=== PATIENT | female | born 1945 | race Caucasian/White ===

== ENCOUNTER 2018-06-15 12:23 | Emergency (ER) | payer OTHER ==
--- OUTSIDE RECORDS SUMMARY | 2018-06-15 12:26 | XMS REPORT | Continuity of Care Document ---
:1945 Author Organization Interface Problems Problem Status Onset Classification Date Comments Source Date Reported SYNOVIAL PLICA Active 04/23/20 [facility] 16 Jacky MECHANICAL Active 09/14/19 [facility] COMPLICATION OF 15 Medical TOTAL KNEE [facility] AFTERCARE Active 08/31/19 [facility] FOLLOWING JOINT 15 Medical REPLACEMENT Center Breast cancer Resolved 05/05/18 Problem 05/12/2016 Ortho [facility] Spine,[facility] Arthritis Active Problem 05/12/2016 [facility] H/O Resolved Problem 05/12/2016 Has had [facility] vertigo<sup>1</s brain and Spine up> scans, Negative. Migraines Active Problem 05/12/2016 [facility] Reflux Active Problem 05/12/2016 [facility] Seasonal Resolved Problem 05/12/2016 Ortho allergies and Spine Tachycardia<sup> Resolved Problem 05/12/2016 stable w/ [facility] 2</sup> [facility] Final: 10/15/2014 [facility] Tachycardia<sup> Resolved Problem 10/15/2014 1stable w/ [facility] 1</sup> [facility] COM PROS JT Active [facility] AFTERCARE JOINT Active [facility] REPLACE [facility] Medications Medication Details Route Status Patient Ordering Order Source Instructions Provider Date meloxicam 15 mg, 2 tab, No Longer 05/09/ Ortho Route: PO, Drug Active 2016 and form: TAB, Spine Daily, Dosing Weight 87.727, kg, PRN Pain Score 1-5, Start date: 05/09/16 8:13:00 [employer], Duration: 30 day, Stop date: 06/08/16 8:12:00 CSTNotes: (Same as: Enriqueta) Ondansetron 0.8 4 mg, 1 tab, No Longer 05/09/ Ortho MG/ML Oral Route: PO, Drug Active 2016 and Solution [Zofran] form: TABDIS, Spine Q8H, Dosing Weight 87.727, kg, PRN Nausea, Start date: 05/09/16 8:13:00 [employer], Duration: 30 day, Stop date: 06/08/16 8:12:00 CSTNotes: (Same as: Zofran ODT) Acetaminophen 650 mg, 2 tab, No Longer Ortho Route: PO, Drug Active 2016 and form: TAB, Q4H, Spine Dosing Weight 87.727, kg, PRN Pain 1-3/Temp > 100.4 F, Start date: 05/09/16 8:13:00 [employer], Duration: 30 day, Stop date: 06/08/16 8:12:00 CSTNotes: Do not exceed 4 gm/day. (Same as: Tylenol) meloxicam 15 mg 15 mg=1 tab, PO, Active Ortho oral tablet Daily, # 30 tab, 2016 and 1 Refill(s), Spine Pharmacy: [facility]/pharmacy #[id number] Flumazenil 0.2 mg, 2 mL, No Longer Ortho Route: IVP, Drug Active 2016 and form: INJ, PRN, Spine Dosing Weight 87.727, kg, PRN Benzodiazepine Reversal, Initial dose, Start date: 05/09/16 7:21:00 [employer], Duration: 30 day, Stop date: 06/08/16 7:20:00 CSTNotes: (Same as: Romazicon) Naloxone 0.4 mg, 1 mL, No Longer Ortho Route: IVP, Drug Active 2016 and form: INJ, Spine Q2MIN, Dosing Weight 87.727, kg, PRN Narcotic Reversal, Start date: 05/09/16 7:21:00 [employer], Duration: 8 doses or times, Stop date: Limited # of timesNotes: Same as Narcan Oxycodone 5 mg, 1 tab, No Longer Ortho Route: PO, Drug Active 2016 and form: TAB, Q4H, Spine Dosing Weight 87.727, kg, PRN Pain Score 4-6, Start date: 05/09/16 7:21:00 [employer], Duration: 30 day, Stop date: 06/08/16 7:20:00 CSTNotes: (Same as: Roxicodone) Labetalol 10 mg, 2 mL, No Longer Ortho Route: IVP, Drug Active 2016 and form: INJ, Spine Q5Min, Dosing Weight 87.727, kg, PRN Elevated BP, Start date: 05/09/16 7:21:00 [employer], Duration: 5 doses or times, Stop date: Limited # of times Hydromorphone 0.5 mg, 0.25 mL, No Longer Ortho Route: IVP, Drug Active 2016 and form: INJ, Spine Q5Min, Dosing Weight 87.727, kg, PRN Pain Score 7-10, Start date: 05/09/16 7:21:00 [employer], Duration: 4 doses or times, Stop date: Limited # of timesNotes: Same as Dilaudid Ondansetron 4 mg, 2 mL, No Longer Ortho Route: IVP, Drug Active 2016 and form: INJ, ONCE, Spine Dosing Weight 87.727, kg, PRN Nausea & Vomiting, Start date: 05/09/16 7:21:00 CSTNotes: (Same as: Levy) MEDICATION WASTE Product Size: 4 mg Product Wasted: ___ mg 72 HR Scopolamine 1 patch, Route: Inactive Ortho 0.0139 MG/HR TOP, Drug Form: 2017 and Transdermal Patch ERFILM, Dosing Spine Weight 87.727, kg, ONCE, Start date: 05/09/16 6:59:00 [employer], Stop date: 05/09/16 6:59:00 [employer] Ancef 2 gm, 100 mL, Inactive Ortho Route: IVPB, 2016 and Drug form: INJ, Spine ONCE, Dosing Weight 87.727, kg, Start date: 05/09/16 6:59:00 [employer], Duration: 1 doses or times, Stop date: 05/09/16 6:59:00 [employer], Surgical Prophylaxis Only; For patients Notes: Same as Ancef Lactated Ringers 1,000 mL, Rate: No Longer Ortho 1,000 mL 40 ml/hr, Infuse Active 2016 and over: 25 hr, Spine Route: IV, Dosing Weight 87.727 kg, Total Volume: 1,000, Start date: 05/09/16 6:59:00 [employer], Duration: 30 day, Stop date: 06/08/16 6:58:00 [employer] polymyxin B 125,000 unit, Inactive Ortho sulfate + sodium Route: IRRIG, 2017 and chloride 0.9% 250 Drug form: Spine mL INJ (for IV PDR/INJ, ONCE, set) 250 mL Start date: 05/09/16 6:42:00 [employer], Stop date: 05/09/16 6:42:00 CSTNotes: (Same as: Polymyxin B Sulfate) vancomycin + 500 mg, Route: Inactive Ortho sodium chloride IRRIG, Drug 2017 and 0.9% 250 mL INJ form: PDR/INJ, Spine (for IV set) 250 ONCE, Start mL date: 05/09/16 6:42:00 [employer], Stop date: 05/09/16 6:42:00 CSTNotes: TIME CRITICAL MEDICATION (Same As: Vancocin) ropivacaine 100 mL, Route: Inactive Ortho InFILtration(loc 2017 and al), Drug Form: Spine INJ, ONCE, Start date: 05/09/16 6:41:00 [employer], Stop date: 05/09/16 6:41:00 CSTNotes: NOT FOR IV use Ropivacaine 5 mg/mL (49.25 mL) Epinephrine 1 mg/mL (0.5 mL) Clonidine 0.1 mg/mL (0.8 mL) Normal Saline 48.45 mL Naproxen sodium 220 mg=1 tab, No Longer Ortho 220 MG Oral PO, Q8H, PRN Active 2015 and Tablet [Aleve] Pain, # 30 tab, Spine 0 Refill(s) Cyclobenzaprine 5 mg=1 tab, PO, Active Ortho hydrochloride 5 Daily, # 30 tab, 2016 and MG Oral Tablet 0 Refill(s) Spine [Flexeril] remove patch 1 patch, Route: No Longer [facility], Drug form: Active [facility] Medical ERFILM, Q72H, Center Start date: 10/13/14 20:00:00, Duration: 30 day, Stop date: 11/09/14 20:00:00Notes: Remove old patch before application of new patch. Aspirin 81 MG 81 mg=1 tab, PO, Active [facility] Chewable Tablet BID, # 42 tab, 0 2014 Medical Refill(s) [place] Acetaminophen 325 2 tab, PO, Q4H, Active [place] MG / tramadol PRN Pain Score 2014 Medical hydrochloride 4-6, # 40 tab, 0 Center 37.5 MG Oral Refill(s) Tablet Nexium 40 mg, 1 cap, No Longer [place] Route: PO, Drug Active 2014 Medical form: ECCAP, [place] Daily, Dosing Weight 81.818, kg, Start date: 10/11/14 9:00:00, Duration: 30 day, Stop date: 11/09/14 9:00:00Notes: (Same as: NexIUM) "Do Not Crush" Non-Formulary POLYETHYLENE 17 gm, 1 pkt, No Longer [place] GLYCOL 3350 Route: PO, Drug Active 2014 Medical form: PWDR, [place] Daily, Dosing Weight 81.818, kg, Start date: 10/11/14 9:00:00, Duration: 30 day, Stop date: 11/09/14 9:00:00Notes: Dissolve in 8 oz of water or juice. (Same as: Miralax) Docusate 100 mg, 1 cap, No Longer [place] Route: PO, Drug Active 2014 Medical form: CAP, BID, Center Dosing Weight 81.818, kg, Start date: 10/11/14 9:00:00, Duration: 30 day, Stop date: 11/09/14 17:00:00Notes: (Same as: Colace) (Do Not Crush) Lidocaine 1 patch, Route: No Longer [place] Hydrochloride TOP, Daily, Drug Active 2014 Medical 0.05 MG/MG form: FILM, Center Transdermal Patch Start date: [Lidoderm] 10/11/14 9:00:00, Duration: 30 day, Stop date: 11/09/14 9:00:00, Remove after 12 hoursSpecial Instructions: Remove after 12 hoursNotes: Apply only once for up to 12 hours in a 24-hour period (12 hours on and 12 hours off). (Same as: Lidoderm) "Remove old patch before application of new patch" sennosides, INTERMEDIATE 8.6 mg, 1 tab, No Longer [place] Route: PO, Drug Active 2014 Medical Form: TAB, Center Dosing Weight 81.818, kg, Daily, Start date: 10/11/14 9:00:00, Duration: 30 day, Stop date: 11/09/14 9:00:00Notes: (Same as: Senokot) Acetaminophen 10 1,000 mg, 100 Inactive [place] MG/ML Injectable mL, Route: IV, 2014 Medical Solution Drug form: INJ, Center Q6H, Dosing Weight 81.818, kg, For > or=50 kg, Start date: 10/11/14 0:00:00, Duration: 1 doses or times, Stop date: 10/11/14 0:00:00Notes: Infuse over 15 minutes Do not exceed 4gm/day of acetaminophen MEDICATION WASTE Product Size: 1000 mg Product Wasted: ___ mg Tranexamic Acid 900 mg, 9 mL, Inactive [place] Route: IVPB, 2014 Medical Drug form: INJ, Center ONCE, Dosing Weight 81.818, kg, Start date: 10/10/14 23:44:00, Stop date: 10/10/14 23:44:00Notes: (Same As: Cyklokapron) Aspirin 325 mg, 1 tab, No Longer [place] Route: PO, Drug Active 2014 Medical form: ECTAB, Center Q12H, Dosing Weight 81.818, kg, For patients with risk of bleeding, Start date: 10/10/14 21:47:00, Duration: 30 day, Stop date: 11/09/14 21:00:00Notes: (Do Not Crush) Do not crush or chew. 24 HR Metoprolol 25 mg, 1 tab, No Longer [place] Tartrate 25 MG Route: PO, Drug Active 2014 Medical Extended Release form: ERTAB, [place] Tablet [Toprol] Bedtime, Start date: 10/10/14 21:00:00, Duration: 30 day, Stop date: 11/08/14 21:00:00Notes: (Same as: Toprol XL) Do Not Crush ceFAZolin (SCIP) 2 gm, 100 mL, No Longer [place] Route: IVPB, Active 2014 Medical Drug form: INJ, Center Q6H, Dosing Weight 81.818, kg, Start date: 10/10/14 21:00:00, Duration: 6 doses or times, Stop date: 10/12/14 3:00:00Notes: Same as Ancef 72 HR Scopolamine 1.5 mg, Route: No Longer [place] 0.0139 MG/HR TOP, Drug Form: Active 2014 Medical Transdermal Patch ERFILM, Dosing Center Weight 81.818, kg, POST OP, Start date: 10/10/14 19:30:00Notes: Change patch every 72 hours (Same as: Transderm-Scop) 72 HR Scopolamine 1 patch, Route: No Longer [place] 0.0139 MG/HR TOP, Drug Form: Active 2014 Medical Transdermal Patch ERFILM, Dosing Center Weight 81.818, kg, Q72H, PRN Nausea & Vomiting, Start date: 10/10/14 19:26:00, Duration: 30 day, Stop date: 11/09/14 19:25:00Notes: Change patch every 72 hours (Same as: Transderm-Scop) naloxone 0.4 mg, 1 mL, No Longer [facility] Route: IV, Drug Active 2014 Medical form: INJ, PRN, Center PRN Sedation, Start date: 10/10/14 18:07:00, Duration: 30 day, Stop date: 11/09/14 18:06:00Notes: Same as Narcan celecoxib 200 mg, 1 cap, No Longer [facility] Route: PO, Drug Active 2014 Medical form: CAP, Center [id number], Dosing Weight 81.818, kg, Start date: 10/10/14 18:00:00, Duration: 30 day, Stop date: 11/09/14 6:00:00Notes: NSAID. Please check indication. Not for seizure. (Same As: CeleBREX) Tylenol 500 mg, 1 tab, No Longer [place] Route: PO, Drug Active 2014 Medical form: TAB, Q6H, Center Dosing Weight 81.818, kg, Start date: 10/10/14 18:00:00, Duration: 30 day, Stop date: 11/09/14 12:00:00Notes: Max acetaminophen 4000 mg/day (4 gm/day). (Same as: Tylenol Extra Strength) Tramadol 50 mg, 1 tab, No Longer [facility] Route: PO, Drug Active 2014 Medical form: TAB, Q6H, Center Dosing Weight 81.818, kg, Start date: 10/10/14 18:00:00, Duration: 30 day, Stop date: 11/09/14 12:00:00Notes: Not to exceed 400mg/day. (Same As: Ultram) Diphenhydramine 25 mg, 1 cap, No Longer [facility] Route: PO, Drug Active 2014 Medical form: CAP, Center Bedtime, Dosing Weight 81.818, kg, PRN Insomnia, Start date: 10/10/14 17:44:00, Duration: 30 day, Stop date: 11/09/14 17:43:00Notes: (Same as: Benadryl) Hydroxyzine 25 mg, 1 cap, No Longer [facility] Route: PO, Drug Active 2014 Medical form: CAP, Q6H, Center Dosing Weight 81.818, kg, PRN Itching, Start date: 10/10/14 17:44:00, Duration: 30 day, Stop date: 11/09/14 17:43:00Notes: (Same as: Vistaril) Sodium Chloride 1,000 mL, Rate: Inactive [place] 0.154 MEQ/ML 17 microgram/hr, 2014 Medical Injectable Route: IV, Center Solution Dosing Weight 81.818 kg, Total Volume: 1,000 mL, PRN itching, Start date: 10/10/14 17:44:00, Duration: 30 day, Stop date: 11/09/14 17:43:00 Bisacodyl 10 mg, 1 supp, No Longer [facility] Route: [place], Drug Active 2014 Medical form: SUPP, Center Daily, Dosing Weight 81.818, kg, PRN Constipation, Start date: 10/10/14 17:44:00, Duration: 30 day, Stop date: 11/09/14 17:43:00Notes: (Same As: Dulcolax, Bisco-Lax) Hydromorphone 0.3 mg, 0.15 mL, No Longer [facility] Route: IVP, Drug Active 2014 Medical form: INJ, Q4H, Center Dosing Weight 81.818, kg, PRN Pain Score 7-10, Start date: 10/10/14 17:44:00, Duration: 30 day, Stop date: 11/09/14 17:43:00Notes: Same as Dilaudid Promethazine 25 mg, 1 tab, No Longer [facility] Route: PO, Drug Active 2014 Medical form: TAB, QID, Center Dosing Weight 81.818, kg, PRN Nausea & Vomiting, Start date: 10/10/14 17:44:00, Duration: 30 day, Stop date: 11/09/14 17:43:00Notes: (Same as: Phenergan) Ondansetron 4 mg, 2 mL, No Longer [facility] Route: IVP, Drug Active 2014 Medical form: INJ, Q8H, Center Dosing Weight 81.818, kg, PRN Nausea & Vomiting, Start date: 10/10/14 17:44:00, Duration: 30 day, Stop date: 11/09/14 17:43:00Notes: (Same as: Zofran) MEDICATION WASTE Product Size: 4 mg Product Wasted: ___ mg Oxycodone 5 mg, 1 tab, No Longer [facility] Hydrochloride 5 Route: PO, Drug Active 2014 Medical MG Oral Tablet form: TAB, Q4H, Center Dosing Weight 81.818, kg, PRN Pain Score 4-6, Start date: 10/10/14 17:44:00, Duration: 30 day, Stop date: 11/09/14 17:43:00Notes: (Same as: Roxicodone) zolpidem 5 mg, Route: PO, Inactive [facility] Drug form: TAB, 2014 Medical Bedtime, Dosing Center Weight 81.818, kg, PRN Insomnia, Start date: 10/10/14 17:44:00, Duration: 30 day, Stop date: 11/09/14 17:43:00 Famotidine 20 mg, 1 tab, No Longer [facility] Route: PO, Drug Active 2014 Medical form: TAB, BID, Center Dosing Weight 81.818, kg, PRN Indigestion, Start date: 10/10/14 17:44:00, Duration: 30 day, Stop date: 11/09/14 17:43:00Notes: (Same as: Pepcid) Milk of Magnesia 30 ml, Route: No Longer [facility] PO, Drug Form: Active 2015 Medical SUSP, Dosing Center Weight 81.818, kg, Daily, PRN Constipation, Start date: 10/10/14 17:44:00, Duration: 30 day, Stop date: 11/09/14 17:43:00Notes: (Same as: Milk of Magnesia, MOM) Maalox Advanced 30 mL, Route: No Longer [place] Regular Strength PO, Drug Form: Active 2014 Medical SUSP SUSP, Dosing Center Weight 81.818, kg, QID, PRN Indigestion, Start date: 10/10/14 17:44:00, Duration: 30 day, Stop date: 11/09/14 17:43:00Notes: (aluminum hydroxide-magnes ium hyd- simethicone [id number]/5ml 30 ml ud [place]) Temazepam 15 mg, 1 cap, No Longer [facility] Route: PO, Drug Active 2014 Medical form: CAP, Center Bedtime, Dosing Weight 81.818, kg, PRN Sleep, Start date: 10/10/14 17:44:00, Duration: 30 day, Stop date: 11/09/14 17:43:00Notes: (Same As: Restoril) Tylenol 650 mg, 2 tab, No Longer [facility] Route: PO, Drug Active 2014 Medical form: TAB, Q6H, Center Dosing Weight 81.818, kg, PRN For Temp > 100.4 F, Start date: 10/10/14 17:44:00, Duration: 30 day, Stop date: 11/09/14 17:43:00Notes: Do not exceed 4 gm/day. (Same as: Tylenol) Acetaminophen 325 2 tab, Route: No Longer [facility] MG / tramadol PO, Drug Form: Active 2014 Medical hydrochloride TAB, Dosing Center 37.5 MG Oral Weight 81.818, Tablet kg, Q4H, PRN Pain Score 4-6, Start date: 10/10/14 17:44:00, Duration: 30 day, Stop date: 11/09/14 17:43:00Notes: Non-Formulary Drug. Do not exceed 4gm/day of acetaminophen. (Same as: Ultracet) 1/2 NS 1,000 mL 1,000 mL, Rate: No Longer [facility] 85 ml/hr, Infuse Active 2014 Medical over: 11.8 hr, Center Route: IV, Dosing Weight 81.818 kg, Total Volume: 1,000, Start date: 10/10/14 17:44:00, Duration: 30 day, Stop date: 11/09/14 17:43:00 Calcium Carbonate 1 tab, Route: No Longer [facility] 1500 MG / PO, Drug Form: Active 2014 Medical Cholecalciferol TAB, Dosing Center 400 UNT Oral Weight 81.818, Tablet kg, BID, Start date: 10/10/14 17:00:00, Duration: 30 day, Stop date: 11/09/14 9:00:00Notes: (Same As: Nicholas-D, OsCal-D, Oyster Calcium) Docusate 100 mg, 1 cap, No Longer [facility] Route: PO, Drug Active 2014 Medical form: CAP, BID, Center Dosing Weight 81.818, kg, Start date: 10/10/14 17:00:00, Duration: 30 day, Stop date: 11/09/14 9:00:00Notes: (Same as: Colace) (Do Not Crush) gabapentin 300 MG 300 mg, 1 cap, No Longer [facility] Oral Capsule Route: PO, Drug Active 2014 Medical form: CAP, Q8H, Center Dosing Weight 81.818, kg, Start date: 10/10/14 16:00:00, Duration: 30 day, Stop date: 11/09/14 8:00:00Notes: (Same as: Neurontin) Hydralazine 10 mg, 0.5 mL, No Longer [facility] Route: IVP, Drug Active 2014 Medical form: INJ, Q4H, Center Dosing Weight 81.818, kg, PRN Hypertension, Start date: 10/10/14 14:16:00, Duration: 30 day, Stop date: 11/09/14 14:15:00, SBP>170, DBP>100Notes: (Same as: Apresoline) Push over 5 minutes Hydroxyzine 25 mg, 1 cap, No Longer [place] Route: PO, Drug Active 2014 Medical form: CAP, QID, Center Dosing Weight 81.818, kg, PRN Itching, Start date: 10/10/14 13:54:00, Duration: 30 day, Stop date: 11/09/14 13:53:00Notes: (Same as: Vistaril) Ondansetron 4 mg, 2 mL, No Longer [place] Route: IVP, Drug Active 2014 Medical form: INJ, Q8H, Center Dosing Weight 81.818, kg, PRN Nausea & Vomiting, Start date: 10/10/14 13:53:00, Duration: 30 day, Stop date: 11/09/14 13:52:00Notes: (Same as: Zofran) MEDICATION WASTE Product Size: 4 mg Product Wasted: ___ mg Morphine 2 mg, 0.2 mL, No Longer [place] Route: IVP, Drug Active 2014 Medical form: INJ, Q3H, Center Dosing Weight 81.818, kg, PRN Pain Score 7-10, Start date: 10/10/14 13:53:00, Duration: 30 day, Stop date: 11/09/14 13:52:00Notes: (Same as:MORPhine Sulfate) REACTION TO MORPHINE IS NAUSEA/VOMITING (SPOKE WITH JAZMIN NAVA PRE-OP) Acetaminophen 325 1 tab, Route: No Longer [place] MG / Hydrocodone PO, Drug Form: Active 2014 Medical Bitartrate 10 MG TAB, Dosing Center Oral Tablet Weight 81.818, kg, Q4H, PRN Pain Score 4-6, Start date: 10/10/14 13:53:00, Duration: 30 day, Stop date: 11/09/14 13:52:00Notes: Do not exceed 4gm/day of acetaminophen. (Same as: [place] 325/10) Acetaminophen 325 1 tab, Route: No Longer [place] MG / Hydrocodone PO, Drug Form: Active 2014 Medical Bitartrate 5 MG TAB, Dosing Center Oral Tablet Weight 81.818, kg, Q4H, PRN Pain Score 1-3, Start date: 10/10/14 13:53:00, Duration: 30 day, Stop date: 11/09/14 13:52:00Notes: (Same as: [place] 325/5) Do not exceed 4gm/day of acetaminophen. Acetaminophen 650 mg, 2 tab, No Longer [facility] Route: PO, Drug Active 2014 Medical form: TAB, Q4H, Center Dosing Weight 81.818, kg, PRN Pain 1-3/Temp > 100.4 F, Start date: 10/10/14 13:53:00, Duration: 30 day, Stop date: 11/09/14 13:52:00, feverNotes: Do not exceed 4 gm/day. (Same as: Tylenol) Fentanyl 25 microgram, Inactive [facility] 0.5 mL, Route: 2014 Medical IVP, Drug form: Center INJ, Q5Min, Dosing Weight 81.818, kg, PRN Pain Score 4-6, Start date: 10/10/14 13:17:00, Duration: 4 doses or times, Stop date: 10/10/14 19:00:00Notes: (Same as: Sublimaze) Preservative free. Hydromorphone 0.5 mg, 0.25 mL, Inactive [facility] Route: IVP, Drug 2014 Medical form: INJ, Center Q5Min, Dosing Weight 81.818, kg, PRN Pain Score 7-10, Start date: 10/10/14 13:17:00, Duration: 4 doses or times, Stop date: 10/10/14 19:00:00Notes: Same as Dilaudid Flumazenil 0.2 mg, 2 mL, Inactive [facility] Route: IVP, Drug 2014 Medical form: INJ, PRN, Center Dosing Weight 81.818, kg, PRN Benzodiazepine Reversal, Initial dose, Start date: 10/10/14 13:17:00, Stop date: 10/10/14 19:00:00Notes: (Same as: Romazicon) Naloxone 0.04 mg, 0.1 mL, No Longer [facility] Route: IVP, Drug Active 2014 Medical form: INJ, Center Q2MIN, Dosing Weight 81.818, kg, PRN Narcotic Reversal, Start date: 10/10/14 13:17:00, Duration: 8 doses or times, Stop date: Limited # of timesNotes: Same as Narcan Promethazine 6.25 mg, 0.25 Inactive [facility] mL, Route: IVPB, 2014 Medical Drug form: INJ, Center ONCE, Dosing Weight 81.818, kg, PRN Nausea & Vomiting, Start date: 10/10/14 13:17:00Notes: Do not give IV push. (Same as: Phenergan) Ondansetron 4 mg, 2 mL, No Longer [facility] Route: IVP, Drug Active 2014 Medical form: INJ, ONCE, Center Dosing Weight 81.818, kg, PRN Nausea & Vomiting, Start date: 10/10/14 13:17:00Notes: (Same as: Zofran) MEDICATION WASTE Product Size: 4 mg Product Wasted: ___ mg Hydralazine 10 mg, 0.5 mL, Inactive [facility] Route: IVP, Drug 2014 Medical form: INJ, Center Q20Min, Dosing Weight 81.818, kg, PRN Elevated BP, Start date: 10/10/14 13:17:00, Duration: 2 doses or times, Stop date: 10/10/14 19:00:00Notes: (Same as: Apresoline) Push over 5 minutes Labetalol 10 mg, 2 mL, Inactive [facility] Route: IVP, Drug 2014 Medical form: INJ, Center Q5Min, Dosing Weight 81.818, kg, PRN Elevated BP, Start date: 10/10/14 13:17:00, Duration: 5 doses or times, Stop date: 10/10/14 19:00:00 Dexamethasone 4 mg, Route: Inactive [facility] IVP, ONCE, 2014 Medical Dosing Weight Center 81.818, kg, Start date: 10/10/14 12:19:00, Stop date: 10/10/14 12:19:00 Zofran 4 mg, Route: Inactive [facility] IVP, ONCE, 2014 Medical Dosing Weight Center 81.818, kg, Start date: 10/10/14 12:19:00, Stop date: 10/10/14 12:19:00 Cefazolin 2 gm, 100 mL, Inactive [facility] Route: IVPB, 2014 Medical Drug form: INJ, Center ONCE, Dosing Weight 81.818, kg, Start date: 10/10/14 12:18:00, Duration: 1 doses or times, Stop date: 10/10/14 12:18:00Notes: Same as Ancef Celebrex 400 mg, Route: Inactive [facility] PO, ONCE, Dosing 2014 Medical Weight 81.818, Center kg, Start date: 10/10/14 12:18:00, Stop date: 10/10/14 12:18:00 ropivacaine 100 mL, Route: Inactive [facility] InFILtration(loc 2015 Medical al), Drug Form: Center INJ, ONCE, Start date: 10/10/14 9:00:00, Stop date: 10/10/14 9:00:00Notes: NOT FOR IV use Ropivacaine 5 mg/mL (49.25 mL) Epinephrine 1 mg/mL (0.5 mL) Clonidine 0.1 mg/mL (0.8 mL) Ketorolac 30 mg/mL (1 mL) Normal Saline 48.45 mL biotin PO, Daily, 0 Active 09/19[facility] Refill(s) [address] [place] [address] Vitamin B Complex 1 tab, PO, Active [facility] oral capsule Daily, # 30 cap, 2015 Medical 0 Refill(s) [place] Calcium Carbonate 1 tab, PO, BID, Active [facility] 1500 MG / # 60 tab, [address] [place] [address] Cholecalciferol Refill(s) [place] 400 UNT Oral Tablet 24 HR Metoprolol 25 mg=1 tab, PO, Active [facility] Tartrate 25 MG Bedtime, # 30 2015 Medical Extended Release tab, 0 Refill(s) [place] Tablet [Toprol] Furosemide 20 MG 20 mg=1 tab, PO, Active [facility] Oral Tablet PRN, # 30 tab, 0 2015 Medical [Lasix] Refill(s) [place] Esomeprazole 40 40 mg=1 cap, PO, Active [facility] MG Enteric Coated Daily, # 30 cap, 2015 Medical Capsule [Nexium] 0 Refill(s) [place] Allergies, Adverse Reactions, Alerts Substance Category Reaction Severity Reaction Status Date Comments Source type Reported codeine Assertion n/v/sweati SV^Severe Drug Active [facility] ng [facility] Demerol HCl Assertion n/v/sweati SV^Severe Drug Active [facility] ng [facility] HYDROcodone Assertion Drug Active nausea, [facility] <sup>1</sup allergy vomiting. [facility] morphine Assertion n/v/sweati SV^Severe Drug Active [facility] ng allergy [facility] Immunizations Immunization Date Given Site Status Last Updated Comments Source Results Order Name Results Value Reference Date Interpretation Comments Source Range CHEM PANEL eGFR 61 05/01 Result Comment: The eGFR is calculated using the CKD-EPI formula. In most young, healthy individuals the eGFR will be >90 mL/ min/1.73m2. The eGFR declines with age. An eGFR of 60-89 may be normal in Ortho mL/min/1. some populations, particularly the elderly, for whom the CKD-EPI formula has not been extensively validated. Use of the eGFR is not recommended in the following populations: and 3m2 Spine Individuals with unstable creatinine concentrations, including patients and those with serious co-morbid conditions. Patients with extremes in muscle mass or diet. The data above are obtained from the National Kidney Disease Education Program (NKDEP) which additionally recommends that when the eGFR is used in patients with extremes of body mass index for purposes of drug dosing, the eGFR should be multiplied by the estimated BMI. CHEM PANEL Total Protein 6.4 g/dL 6.4 - 8.4 05/01 [facility] CHEM PANEL Albumin Lvl 3.6 g/dL 3.5 - 5.0 05/01 [facility] CHEM PANEL ASPARTATE 20 unit/L 0 - 37 05/01 Ortho TRANSAMINASE and Spine CHEM PANEL ALANINE 35 unit/L 0 - 65 05/01 Ortho AMINOTRANSFER /2015 and ASE Spine CHEM PANEL Bili Total 0.5 mg/dL 0.2 - 1.3 05/01 [facility] CHEM PANEL Alk Phos 98 unit/L 39 - 136 05/01 [facility] CHEM PANEL CO2 30 meq/L 24 - 32 05/01 [facility] CHEM PANEL Calcium Lvl 8.7 mg/dL 8.5 - 10.5 05/01 [facility] CHEM PANEL Chloride Lvl 104 meq/L 95 - 109 05/01 and Spine CHEM PANEL Creatinine 0.96 mg/dL 0.50 - 05/01 [facility]o Lvl 1.40 /2015 and Spine CHEM PANEL Sodium Lvl 141 meq/L 135 - 145 05/01 and Spine CHEM PANEL Potassium Lvl 4.6 meq/L 3.5 - 5.1 05/01 and Spine CHEM PANEL Glucose Lvl 93 mg/dL 70 - 99 05/01 and Spine CHEM PANEL BUN 25 mg/dL 7 - 22 05/01 and Spine CHEM PANEL B/C Ratio 26 6 - 25 05/01 and Spine CHEM PANEL AGAP 11.6 meq/L 10.0 - 05/01 Ortho 20.0 and Spine CHEM PANEL A/G Ratio 1.3 0.7 - 1.6 05/01 and Spine CHEM PANEL Globulin 2.8 g/dL 2.7 - 4.2 05/01 and Spine HEMATOLOGY Eosinophils 4.0 % 0.0 - 4.0 05/01 [facility] HEMATOLOGY Monocytes 11.2 % 2.0 - 12.0 05/01 [facility] HEMATOLOGY Lymphocytes # 1.4 K/CMM 1.0 - 5.5 05/01 [facility] HEMATOLOGY Basophils 0.7 % 0.0 - 1.0 05/01 [facility] HEMATOLOGY Segs-Bands # 4.3 K/CMM 1.5 - 8.1 05/01 [facility] HEMATOLOGY Eosinophils # 0.3 K/CMM 0.0 - 0.5 05/01 [facility] HEMATOLOGY Monocytes # 0.8 K/CMM 0.0 - 0.8 05/01 [facility] HEMATOLOGY Lymphocytes 20.3 % 20.0 - 05/01 Ortho 40.0 /2016 and Spine HEMATOLOGY Segs 63.8 % 45.0 - 05/01 Ortho 75.0 /2016 and Spine HEMATOLOGY MCH 25.4 pg 27.0 - 05/01 Ortho 31.0 /2016 and Spine HEMATOLOGY MCV 79.1 fL 80.0 - 05/01 Ortho 98.0 /2016 and Spine HEMATOLOGY Hct 36.6 % 36.0 - 05/01 Ortho 48.0 /2016 and Spine HEMATOLOGY Platelet 201 K/CMM 133 - 450 05/01 [facility] HEMATOLOGY MPV 9.7 fL 7.4 - 10.4 05/01 [facility] HEMATOLOGY Hgb 11.8 g/dL 12.0 - 05/01 Ortho 16.0 /2016 and Spine HEMATOLOGY RBC 4.63 M/CMM 4.20 - 05/01 Ortho 5.40 /2016 and Spine HEMATOLOGY MCHC 32.1 g/dL 32.0 - 05/01 Ortho 36.0 /2016 and Spine HEMATOLOGY WBC 6.7 K/CMM 3.7 - 10.4 05/01 [facility] HEMATOLOGY RDW 16.9 % 11.5 - 05/01 Ortho 14.5 /2015 and Spine URINE AND UA Sq Epi See Note 1 Few 05/01 Result Ortho STOOL Comment: UA and (05/01/16 10:40 AM) Microscopic - Spine Not indicated. URINE AND UA Nitrite Negative Negative 05/01 Ortho STOOL and (05/01/16 10:40 AM) Spine URINE AND UA 1.0 EU/dL 0.1 - 1.0 05/01 Orth[facility] STOOL Urobilinogen and Spine URINE AND UA Leuk Est Negative Negative 05/01 Ortho STOOL and (05/01/16 10:40 AM) Spine URINE AND UA Turbidity Clear Clear 05/01 Ortho STOOL and (05/01/16 10:40 AM) Spine URINE AND UA pH 6.0 5.0 - 8.0 05/01 Ortho STOOL and Spine URINE AND UA Color Yellow Yellow 05/01 Ortho STOOL and *NA* Spine (05/01/16 10:40 AM) URINE AND UA Spec Grav 1.020 <=1.030 05/01 Ortho STOOL and Spine URINE AND UA Protein Negative Negative 05/01 Ortho STOOL mg/dL mg/dL /2015 and Spine URINE AND UA Ketones Negative Negative 05/01 Ortho STOOL mg/dL mg/dL /2015 and Spine URINE AND UA Glucose Negative Negative 05/01 Ortho STOOL mg/dL mg/dL and Spine URINE AND UA Blood Negative Negative 05/01 Ortho STOOL and (05/01/16 10:40 AM) Spine URINE AND UA Bili Negative Negative 05/01 Ortho STOOL /2015 and *NA* Spine (05/01/16 10:40 AM) HEMATOLOGY Hct 33.5 % 36.0 - 10/12 [facility] 48.0 [facility] HEMATOLOGY Hgb 10.8 g/dL 12.0 - 10/12 [facility] 16. [facility] CHEM PANEL eGFR 76 10/11 1Result Comment: The eGFR is calculated using the CKD-EPI formula. In most young, healthy individuals the eGFR will be >90 mL/ min/1.73m2. The eGFR declines with age. An eGFR of 60-89 may be normal in [facility] mL/min/1.7 some populations, particularly the elderly, for whom the CKD-EPI formula has not been extensively validated. Use of the eGFR is not recommended in the following populations: [address] Individuals with unstable creatinine concentrations, including patients and those with serious co-morbid conditions. Patients with extremes in muscle mass or diet. The data above are obtained from the National Kidney Disease Education Program (NKDEP) which additionally recommends that when the eGFR is used in patients with extremes of body mass index for purposes of drug dosing, the eGFR should be multiplied by the estimated BMI. CHEM PANEL AGAP 12.9 meq/L 10.0 - 10/11 [facility] 20. [facility] CHEM PANEL Calcium Lvl 8.7 mg/dL 8.5 - 10.5 10/11 [facility] CHEM PANEL CO2 25 meq/L 24 - 32 10/11 [facility] CHEM PANEL Creatinine 0.8 mg/dL 0.5 - 1.4 10/11 [facility] CHEM PANEL Chloride Lvl 101 meq/L 95 - 109 10/11 [facility] CHEM PANEL BUN 18 mg/dL 7 - 22 10/11 [facility] CHEM PANEL Glucose Lvl 166 mg/dL 70 - 99 10/11 3Interpretive Data: Adult reference range values reflect the clinical guidelines of the [place] [employer]. [facility] CHEM PANEL Potassium Lvl 4.9 meq/L 3.5 - 5.1 10/11 [facility] CHEM PANEL Sodium Lvl 134 meq/L 135 - 145 10/11 [facility] HEMATOLOGY Hgb 11.0 g/dL 12.0 - 10/11 [facility] 16.0 [facility] HEMATOLOGY Hct 33.8 % 36.0 - 10/11 [facility] 48.0 /2015 [facility] Knee 1-2 Knee 1-2 10/10 - [facility] Views - Medical unilateral unilateral DX EXAM: LEFT KNEE 2 [facility] DX Read by: Gino Kaur MD Dictated Date/time: 10/11/14 08:07 INDICATION: Trauma Electronically Signed by: Gino Kaur MD 10/11/14 08:07 FINAL REPORT COMPARISON: None. TECHNIQUE: AP and lateral views of the left knee were obtained. FINDINGS: The patient is status post left total knee arthroplasty. Cemented longstem femoral and tibial components are present, appropriately positioned. No fractures, destructive osseous lesions or ort hopedic complications are seen. Surgical drain projects over the suprapatellar recess. IMPRESSION: Status post left total knee arthroplasty. CHEM PANEL eGFR 76 09/20 2Result Comment: The eGFR is calculated using the CKD-EPI formula. In most young, healthy individuals the eGFR will be >90 mL/ min/1.73m2. The eGFR declines with age. An eGFR of 60-89 may be normal in [facility] mL/min/1.7 some populations, particularly the elderly, for whom the CKD-EPI formula has not been extensively validated. Use of the eGFR is not recommended in the following populations: [address] Individuals with unstable creatinine concentrations, including patients and those with serious co-morbid conditions. Patients with extremes in muscle mass or diet. The data above are obtained from the National Kidney Disease Education Program (NKDEP) which additionally recommends that when the eGFR is used in patients with extremes of body mass index for purposes of drug dosing, the eGFR should be multiplied by the estimated BMI. CHEM PANEL Potassium Lvl 3.8 meq/L 3.5 - 5.1 09/20 [facility] CHEM PANEL Globulin 2.6 g/dL 2.0 - 4.0 09/20 [facility]2014 [facility] CHEM PANEL A/G Ratio 1.7 0.7 - 1.6 09/20 [facility] CHEM PANEL Albumin Lvl 4.4 g/dL 3.5 - 5.0 09/20 [facility] CHEM PANEL Alk Phos 81 unit/L 39 - 136 09/20 [facility] CHEM PANEL ALANINE 21 unit/L 0 - 65 09/20 AMINOTRANSFER [facility] CHEM PANEL Bili Total 0.5 mg/dL 0.2 - 1.3 09/20 [facility] CHEM PANEL ASPARTATE 20 unit/L 0 - 37 09/20 [facility] TRANSAMINASE [facility] CHEM PANEL Chloride Lvl 101 meq/L 95 - 109 09/20 [facility] CHEM PANEL Total Protein 7.0 g/dL 6.4 - 8.4 09/20 [facility] CHEM PANEL AGAP 13.8 meq/L 10.0 - 09/20 .0 [facility] CHEM PANEL CO2 28 meq/L 24 - 32 09/20 [facility] CHEM PANEL B/C Ratio 29 6 - 25 09/20 [facility] CHEM PANEL Calcium Lvl 9.7 mg/dL 8.5 - 10.5 09/20 [facility] CHEM PANEL Sodium Lvl 139 meq/L 135 - 145 09/20 [facility] CHEM PANEL BUN 23 mg/dL 7 - 22 09/20 [facility] CHEM PANEL Creatinine 0.8 mg/dL 0.5 - 1.4 09/20 [facility] l [facility] CHEM PANEL Glucose Lvl 92 mg/dL 70 - 99 09/20 4Interpretive Data: Adult reference range values reflect the clinical guidelines of the [place] [employer]. [facility] HEMATOLOGY Lymphocytes 20.2 % 20.0 - 09/20 40.0 [facility] HEMATOLOGY Segs 66.3 % 45.0 - 09/20 75.0 [facility] HEMATOLOGY Eosinophils 1.6 % 0.0 - 4.0 09/20 [facility] HEMATOLOGY Segs-Bands # 4.8 K/CMM 1.5 - 8.1 09/20 [facility] HEMATOLOGY Monocytes 11.5 % 2.0 - 12.0 09/20 [facility] HEMATOLOGY Basophils 0.4 % 0.0 - 1.0 09/20 [facility] HEMATOLOGY Lymphocytes # 1.5 K/CMM 1.0 - 5.5 09/20 [facility] HEMATOLOGY Monocytes # 0.8 K/CMM 0.0 - 0.8 09/20 [facility] HEMATOLOGY Basophils # 0.0 K/CMM 0.0 - 0.2 09/20 [facility] HEMATOLOGY Eosinophils # 0.1 K/CMM 0.0 - 0.5 09/20 [facility] HEMATOLOGY aPTT 25.4 s 23.0 - 09/20 28.2 /2014 [facility] HEMATOLOGY PROTIME 9.6 s 9.0 - 10.6 09/20 [facility] HEMATOLOGY INR 0.98 09/20 10Interpretive Data: RECOMMENDED RANGES FOR PROTIME INR: 2.0-3.0 for most medical and surgical thromboembolic states. Medical 2.5-3.5 for artificial heart valves and recurrent embolism. Center INR SHOULD BE USED ONLY FOR PATIENTS ON STABLE ANTICOAGULANT THERAPY. HEMATOLOGY MPV 11.6 fL 7.4 - 10.4 09/20 [facility] HEMATOLOGY RBC X 10x6 5.00 M/CMM 4.20 - 09/20 [facility] 5.40 /2014 [facility] HEMATOLOGY WBC X 10x3 7.3 K/CMM 3.7 - 10.4 09/20 [facility] HEMATOLOGY MCH 27.2 pg 27.0 - 09/20 31.0 [facility] HEMATOLOGY MCV 82.8 fL 80.0 - 09/20 98.0 [facility] HEMATOLOGY RDW 15.9 % 11.5 - 09/20 14.5 /2014 [facility] HEMATOLOGY MCHC 32.9 g/dL 32.0 - 09/20 36.0 [facility] HEMATOLOGY Platelet 218 K/CMM 133 - 450 09/20 [facility] HEMATOLOGY Hgb 13.6 g/dL 12.0 - 09/20 16.0 [facility] HEMATOLOGY Hct 41.4 % 36.0 - 09/20 [facility] 48.0 [facility] URINE AND Micro? Not Indicated 09/20 [facility] (09/20/14 11:25 AM) Center URINE AND UA Leuk Est Negative Negative 09/20 [facility] (09/20/14 11:25 AM) Center URINE AND UA Ketones Negative Negative 09/20 [facility] (09/20/14 11:25 AM) Center URINE AND UA Bili Negative Negative 09/20 [facility] STOOL [facility] (09/20/14 11:25 AM) Center URINE AND UA Blood Negative Negative 09/20 [facility] STOOL [facility] (09/20/14 11:25 AM) Center URINE AND UA Nitrite Negative Negative 09/20 [facility] (09/20/14 11:25 AM) Center URINE AND UA 0.1 EU/dL 0.1 - 1.0 09/20 [facility] Urobilinogen /2014 [facility] URINE AND UA Protein Negative Negative 09/20 [facility] STOOL [facility] (09/20/14 11:25 AM) Center URINE AND UA pH 6.0 5.0 - 8.0 09/20 [facility] URINE AND UA Spec Grav 1.005 <=1.030 09/20 [facility] URINE AND UA Glucose Negative Negative 09/20 [facility] (09/20/14 11:25 AM) Center URINE AND UA Color Yellow Yellow 09/20 [facility] (09/20/14 11:25 AM) Center URINE AND UA Turbidity Clear Clear 09/20 [facility] (09/20/14 11:25 AM) Center BODY FLUIDS Crystal BF Negative Negative 09/20 [facility] (09/20/14 10:30 AM) Center BODY FLUIDS Crystal BF Other 8 09/20 8Result Comment: Knee [facility] (09/20/14 10:30 AM) [facility] Center BODY FLUIDS Clarity BF Moderate Cloudy Clear 09/20 [facility] *ABN* [place] (09/20/14 10:30 AM) [place] [id number] /mm3 09/20 5Interpretive Data: No Medical established Center reference ranges. BODY FLUIDS WBC BF 413 /mm3 09/20 6Interpretive Data: No Medical established Center reference ranges. BODY FLUIDS Color BF Red Colorless 09/20 [facility] *ABN* [place] (09/20/14 10:30 AM) BODY FLUIDS CellCnt BF Other 9 09/20 9Result [facility] Comment: Knee [facility] (09/20/14 10:30 AM) fluid Center BODY FLUIDS Macrophage BF 16 % 09/20 [facility] Center BODY FLUIDS Lymph BF 71 % 09/20 Medical Center BODY FLUIDS Segs BF 13 % 09/20 7Interpretive Data: No [facility] reference ranges. Chest 2 Chest 2 views EXAM: CHEST 2 VIEWS 09/20 - [facility] views DX - [facility] DATE: September 20, 2014 12:05:00 PM Read by: Gino Kaur MD Dictated Date/time: 09/20/14 12:29 Electronically Signed by: Gino Kuar MD 09/20/14 12:30 FINAL REPORT INDICATION: Arrhythmias Preoperative for revision total knee arthroplasty. COMPARISON: None available. TECHNIQUE: Frontal and lateral chest radiographs FINDINGS: Heart size is normal. Pulmonary vasculature is normal. Lungs are clear. No destructive osseous lesions are identified. The patient is status post bilateral lumpectomy with axillary lymph node dissection. IMPRESSION: 1. Status post bilateral lumpectomy with axillary lymph node dissection. 2. Negative for focal pulmonic process or congestive heart failure. HEMATOLOGY Sed Rate 23 mm/h 0 - 20 08/[address] IMMUNOLOGY C-REACTIVE 4.0 mg/L <=2.9 mg/L 08/[address] Vital Signs Vital Sign Value Date Comments Source Respitory Rate 16 05/09/2016 [facility] Systolic (mm Hg) 129 05/09/2016 [facility] Diastolic (mm Hg) 74 05/09/2016 [facility] Systolic (mm Hg) 127 05/09/2016 [facility] Diastolic (mm Hg) 71 05/09/2016 [facility] Respitory Rate 17 05/09/2016 [facility] Systolic (mm Hg) 135 05/09/2016 [facility] Diastolic (mm Hg) 76 05/09/2016 [facility] Respitory Rate 17 05/09/2016 [facility] Heart Rate 90 05/09/2016 [facility] Temperature Oral (F) 98.3 F 05/09/2016 [facility] Weight 87.727 05/09/2016 [facility] BMI Calculated 32.18 05/09/2016 [facility] Heart Rate 67 05/01/2016 [facility] Temperature Oral (F) 97.6 F 05/01/2016 [facility] Height 165.1 cm 04/25/2016 [facility] Systolic (mm Hg) 117 10/12/2014 [facility] Diastolic (mm Hg) 65 10/12/2014 [facility] Temperature Oral (F) 97.7 F 10/12/2014 [facility] Heart Rate 53 10/12/2014 [facility] Respitory Rate 17 10/12/2014 [facility] Systolic (mm Hg) 124 10/12/2014 [facility] Diastolic (mm Hg) 73 10/12/2014 [facility] Respitory Rate 18 10/12/2014 [facility] Temperature Oral (F) 97.5 F 10/12/2014 [facility] Heart Rate 60 10/12/2014 [facility] Systolic (mm Hg) 112 10/12/2014 [facility] Diastolic (mm Hg) 57 10/12/2014 [facility] Heart Rate 52 10/12/2014 [facility] Respitory Rate 18 10/12/2014 [facility] Temperature Oral (F) 97.6 F 10/12/2014 [facility] Weight 81.818 10/10/2014 [facility] BMI Calculated 30.02 10/10/2014 [facility] Height 165.1 cm 10/10/2014 [facility] Weight 81.818 09/19/2014 [facility] BMI Calculated 30.02 09/19/2014 [facility] Height 165.1 cm 09/19/2014 [facility] Encounters Location Location Encounter Encounter Reason Attending ADM DC Status Source Details Type Number For Provider Date Date Visit [facility] [id number] Art[facility] 08/30 08/31 [facility] /2014 [facility] [id number] Arturo 10/10 10/12 [facility] /2014 [facility] [id number] Arturo 05/09 05/10 [facility]2016 [facility] Procedures Procedure Code Date Perfomer Comments Source Mastectomy [id number] 05/05/1994 [facility] Mastectomy [id number] 05/05/1994 [facility] Arthroplasty of [id number] [facility] and knee<sup>1</sup> Left TKA Spine 68-15. Arthroscopy [id number] [facility] [id number] x2 Ortho and section<sup>2</sup Spine > Hysterectomy [id number] [facility] Arthroplasty of [id number] [facility] Arthroscopy [id number] [facility] [id number] 1x2 [facility] section<sup>1</sup Medical > [place] Hysterectomy [id number] [facility]
[2018-06-15 13:36] LABS: Absolute Lymphocytes (CBC) 1.3 K/uL (0.7-4.9); Absolute Monocytes 0.7 K/uL (0.1-1.3); Absolute Neutrophil 5.7 K/uL (1.8-8.0); Basophils % 0.7 % (0-1.3); Eosinophils % 1.4 % (0-4.4); Hematocrit 41.1 % (36.0-45.0); Lymphocytes % 16.6 % (15.3-44.8); MPV 9.1 fL (7.6-11.3); RBC Red Blood Cell Count 5.07 M/uL (3.86-4.86)
[2018-06-15 13:42] LABS: Protime INR 0.94
[2018-06-15 13:56] LABS: ALT/SGPT 35 U/L (12-78); AST/SGOT 24 U/L (15-37); Alkaline Phosphatase 96 U/L (45-117); BUN Blood Urea Nitrogen 20 mg/dL (7-18); Bicarbonate 28 mmol/L (21-32); Bilirubin Direct 0.2 mg/dL (0-0.2); Bilirubin Total 0.5 mg/dL (0.2-1.0); Glucose Level 107 mg/dL (74-106); Magnesium 2.1 mg/dL (1.8-2.4); NT PRO-BNP 129 pg/mL (<125); Potassium 4.3 mmol/L (3.5-5.1); Protein, Total 7.1 g/dL (6.4-8.2); Sodium Level 145 mmol/L (136-145); Troponin (Emerg Dept Use Only) < 0.02 ng/mL (0.0-0.045)
--- NOTE | 2018-06-15 14:13 | ER ---
Nurse's Notes [facility] Name: Karlee Sapp Age: 73 yrs Sex: Female : 1945 Arrival Date: 06/15/2018 Time: 12:25 Bed 25 Private MD: Daphne Campos Diagnosis: Palpitations Presentation: 06/15 12:36 Presenting complaint: Patient states: "I always have heart palpitations that I take aa5 Toprol for but for the last 2 weeks it's been getting worse and now I feel like my heart flops and when it does it makes me lightheaded". Pt denies chest pain. Transition of care: patient was not received from another setting of care. Onset of symptoms was June 2018. Risk Assessment: Do you want to hurt yourself or someone else? Patient reports no desire to harm self or others. Initial Sepsis Screen: Does the patient meet any 2 criteria? No. Patient's initial sepsis screen is negative. Does the patient have a suspected source of infection? No. Patient's initial sepsis screen is negative. Care prior to arrival: None. 12:36 Method Of Arrival: Ambulatory aa5 12:36 Acuity: FRANCISCA 3 aa5 Historical: - Allergies: 12:38 Demerol; aa5 - Home Meds: 12:38 Toprol XL Oral [Active]; aa5 - PMHx: 12:38 BREAST CA; osteo arthritis; Palpitations; aa5 - PSHx: 12:38 bilateral knee replacement; double mastectomy; aa5 - Immunization history:: Flu vaccine is up to date. - Social history:: Smoking status: Patient/guardian denies using tobacco, Patient/guardian denies using alcohol, street drugs, The patient lives with family. - Ebola Screening: : No symptoms or risks identified at this time. - Family history:: not pertinent. - Hospitalizations: : No recent hospitalization is reported. Screenin:27 Abuse screen: Denies threats or abuse. Denies injuries from another. Nutritional aj screening: No deficits noted. Tuberculosis screening: No symptoms or risk factors identified. Fall Risk None identified. Assessment: 13:27 General: Appears in no apparent distress. comfortable, Behavior is cooperative, aj appropriate for age, anxious. Pain: Denies pain. Neuro: Level of Consciousness is awake, alert, obeys commands, Oriented to person, place, time, situation, Appropriate for age. Cardiovascular: Reports palpitations, Capillary refill < 3 seconds in bilateral fingers Patient's skin is warm and dry. Respiratory: Airway is patent Respiratory effort is even, unlabored, Respiratory pattern is regular, symmetrical. Derm: Skin is intact, is healthy with good turgor, Skin is pink, warm \\T\\ dry. normal. 14:20 Reassessment: Patient appears in no apparent distress at this time. No changes from aj previously documented assessment. Patient and/or family updated on plan of care and expected duration. Pain level reassessed. Patient is alert, oriented x 3, equal unlabored respirations, skin warm/dry/pink. Patient states feeling better. Patient states symptoms have improved. Vital Signs: 12:38 BP 165 / 91; Pulse 75; Resp 16 S; Temp 98.5(O); Pulse Ox 100% on R/A; Weight 86.18 kg aa5 (R); Height 5 ft. 5 in. (165.10 cm) (R); Pain 0/10; 14:20 BP 157 / 87; Pulse 75; Resp 18; Pulse Ox 99% on R/A; aj 12:38 Body Mass Index 31.62 (86.18 kg, 165.10 cm) aa5 ED Course: 12:25 Patient arrived in ED. mr 12:26 Daphne Campos MD is Private Physician. mr 12:36 Arm band placed on. aa5 12:37 Triage completed. aa5 12:39 Kristofer Titus MD is Attending Physician. ma2 12:45 Haley Black, RN is Primary Nurse. aj 13:19 EKG done, by a&p technician. reviewed by Kristofer Titus MD. at1 13:27 Patient has correct armband on for positive identification. aj 13:27 Inserted saline lock: 22 gauge in left antecubital area, using aseptic technique. Blood aj collected. 13:50 X-ray completed. Portable x-ray completed in exam room. Patient tolerated procedure mh1 well. 13:54 XRAY Chest (1 view) In Process Unspecified. EDMS 14:20 No provider procedures requiring assistance completed. IV discontinued, intact, aj bleeding controlled, No redness/swelling at site. Pressure dressing applied. Administered Medications: No medications were administered Outcome: 14:12 Discharge ordered by . ma2 14:21 Discharged to home ambulatory. ruiz 14:21 Condition: good 14:21 Discharge instructions given to patient, Instructed on discharge instructions, follow up and referral plans. medication usage, Demonstrated understanding of instructions, follow-up care, medications, Prescriptions given X 1. 14:21 Patient left the ED. aj Signatures: Dispatcher [employer] EDHaley Blas RN RN aj Rivera, Mary Lowell Jacobsha 1 Marley Garcia RN RN aa5 Haley Ridley, keypunch operators supervisor EKG Tat1 Kristofer Titus MD MD ma2
--- NOTE | 2018-06-15 14:13 | EDPHYS ---
Physician Documentation [facility] Name: Karlee Sapp Age: 73 yrs Sex: Female : 1945 Arrival Date: 06/15/2018 Time: 12:25 Bed 25 Private MD: Daphne Campos ED Physician Kristofer Titus HPI: 06/15 14:11 This 73 yrs old Female presents to ER via Ambulatory with complaints of ma2 Palpitations. 14:11 The patient presents with a history of heart racing. Onset: The symptoms/episode ma2 began/occurred gradually, 2 week(s) ago. Duration: The patient or guardian reports multiple episodes. Modifying factors: The symptoms are alleviated by lying down. Severity of symptoms: At their worst the symptoms were mild in the emergency department the symptoms have resolved. The patient has experienced similar episodes in the past. Historical: - Allergies: 12:38 Demerol; aa5 - Home Meds: 12:38 Toprol XL Oral [Active]; aa5 - PMHx: 12:38 BREAST CA; osteo arthritis; Palpitations; aa5 - PSHx: 12:38 bilateral knee replacement; double mastectomy; aa5 - Immunization history:: Flu vaccine is up to date. - Social history:: Smoking status: Patient/guardian denies using tobacco, Patient/guardian denies using alcohol, street drugs, The patient lives with family. - Ebola Screening: : No symptoms or risks identified at this time. - Family history:: not pertinent. - Hospitalizations: : No recent hospitalization is reported. ROS: 14:11 Constitutional: Negative for fever, chills, and weight loss. ma2 14:11 Cardiovascular: Positive for palpitations, Negative for chest pain, edema, orthopnea, palpitations. 14:11 All other systems are negative. Exam: 14:11 Constitutional: This is a well developed, well nourished patient who is awake, alert, ma2 and in no acute distress. Chest/axilla: Normal chest wall appearance and motion. Nontender with no deformity. No lesions are appreciated. Cardiovascular: Regular rate and rhythm with a normal S1 and S2. No gallops, murmurs, or rubs. Normal PMI, no JVD. No pulse deficits. Respiratory: Lungs have equal breath sounds bilaterally, clear to auscultation and percussion. No rales, rhonchi or wheezes noted. No increased work of breathing, no retractions or nasal flaring. Abdomen/GI: Soft, non-tender, with normal bowel sounds. No distension or tympany. No guarding or rebound. No evidence of tenderness throughout. MS/ Extremity: Pulses equal, no cyanosis. Neurovascular intact. Full, normal range of motion. Neuro: Awake and alert, GCS 15, oriented to person, place, time, and situation. Cranial nerves II-XII grossly intact. Motor strength 5/5 in all extremities. Sensory grossly intact. Cerebellar exam normal. Normal gait. Psych: Awake, alert, with orientation to person, place and time. Behavior, mood, and affect are within normal limits. Vital Signs: 12:38 BP 165 / 91; Pulse 75; Resp 16 S; Temp 98.5(O); Pulse Ox 100% on R/A; Weight 86.18 kg aa5 (R); Height 5 ft. 5 in. (165.10 cm) (R); Pain 0/10; 14:20 BP 157 / 87; Pulse 75; Resp 18; Pulse Ox 99% on R/A; aj 12:38 Body Mass Index 31.62 (86.18 kg, 165.10 cm) aa5 MDM: 12:39 Patient medically screened. ma2 14:11 TAMERA Risk Score: Not Applicable. Differential diagnosis: arrythmia, dehydration, stress ma2 disorder. Data reviewed: vital signs, nurses notes. Counseling: I had a detailed discussion with the patient and/or guardian regarding: the historical points, exam findings, and any diagnostic results supporting the discharge/admit diagnosis, the presence of at least one elevated blood pressure reading (>120/80) during this emergency department visit, the need for outpatient follow up. 06/15 12:53 Order name: Basic Metabolic Panel; Complete Time: 14: ga06/15 12:53 Order name: CBC with Diff; Complete Time: : ga06/15 12:53 Order name: LFT's; Complete Time: 14:06/15 12:53 Order name: Magnesium; Complete Time: 14: ga06/15 12:53 Order name: NT PRO-BNP; Complete Time: 14: ga06/15 12:53 Order name: PT-INR; Complete Time: 14:08 ga2 06/15 12:53 Order name: Troponin (emerg Dept Use Only); Complete Time: 14:08 ga2 06/15 12:53 Order name: XRAY Chest (1 view) [facility] 06/15 12:53 Order name: EKG; Complete Time: 12:54 ga2 06/15 12:53 Order name: Cardiac monitoring; Complete Time: 13:30 ga2 06/15 12:53 Order name: EKG - Nurse/Tech; Complete Time: 13:30 ga2 06/15 12:53 Order name: IV Saline Lock; Complete Time: 13:30 ga2 06/15 12:53 Order name: Labs collected and sent; Complete Time: 13:30 [facility] 06/15 12:53 Order name: O2 Per Protocol; Complete Time: 13:30 ga2 06/15 12:53 Order name: O2 Sat Monitoring; Complete Time: 13:30 ma2 Administered Medications: No medications were administered Disposition: 06/15/18 14:12 Discharged to Home. Impression: Palpitations. - Condition is Stable. - Discharge Instructions: Palpitations. - Prescriptions for Ativan 0.5 mg Oral Tablet - take 1 tablet by ORAL route every 8 hours As needed; 20 tablet. - Medication Reconciliation Form, Thank You Letter, Antibiotic Education, Prescription Opioid Use form. - Follow up: Private Physician; When: Tomorrow; Reason: Continuance of care. Signatures: Dispatcher [employer] Haley Pavon RN RN aj Calderon, Audri, RN RN aa5 Kristofer Titus MD MD ma2 Corrections: (The following items were deleted from the chart) 14:21 14:12 06/15/2018 14:12 Discharged to Home. Impression: Palpitations. Condition is aj Stable. Forms are Medication Reconciliation Form, Thank You Letter, Antibiotic Education, Prescription Opioid Use. Follow up: Private Physician; When: Tomorrow; Reason: Continuance of care. ma2
--- NOTE | 2018-06-15 14:16 | RAD REPORT ---
EXAM DESCRIPTION: RAD - Chest Single View - 06/15/2018 1:55 pm CLINICAL HISTORY: Cough, arrhythmia COMPARISON: None. TECHNIQUE: AP portable chest image was obtained 1351 hours . FINDINGS: Lungs are clear. Heart and vasculature are normal. No measurable pleural effusion and no p neumothorax. No acute bony abnormality seen. No acute aortic findings suspected. IMPRESSION: No acute cardiopulmonary process.
--- NOTE | 2018-06-15 17:26 | EKG ---
Test Date: 2018-06-15 Test Time: 13:15:16 Research Leader: MATHEW/S MEASUREMENT RESULTS: Intervals: Rate: 65 TN: 208 QRSD: 80 QT: 382 QTc: 397 [place]: P: 15 TN: 208 QRS: -10 T: 8 INTERPRETIVE STATEMENTS: Normal sinus rhythm Normal ECG Compared to ECG 10/08/2015 14:50:13 Sinus bradycardia no longer present First degree AV block no longer present Myocardial infarct finding no longer present Electronically Signed On 06-15-18 17:25:30 BIOMEDICAL ENGINEERING DIRECTOR by Colten Foster
== END 2018-06-15 14:21 | disposition home or self-care (01) ==
LOC: ER 12:23
DX: R00.2 Palpitations (principal); Z85.3 Personal history of malignant neoplasm of breast; Z88.5 Allergy status to narcotic agent; Z90.10 Acquired absence of unspecified breast and nipple
CPT/HCPCS: 36415; 71045; 80048; 80076; 83735; 83880; 84484; 85025; 85610; 93005; 99284

== ENCOUNTER 2024-04-27 15:06 | Emergency (ER) | payer OTHER ==
--- NOTE | 2024-04-27 17:19 | RAD REPORT ---
EXAM: CT CHEST, ABDOMEN AND PELVIS WITHOUT CONTRAST CLINICAL INDICATION: Chest and abdominal pain status post fall TECHNIQUE: CT chest, abdomen and pelvis was performed, without IV contrast, as per department protoco l. Axial, sagittal and coronal reconstructions were obtained. One or more of the following dose reduction techniques were used: Automated exposure control, adjustment of the mA and/or kV according to the patient size, and/or iterative reconstruction. Unless otherwise specified, incidental findings do not require dedicated imaging follow-up. The lack of IV and oral contrast limits evaluation of the mediastinum, gela, vessels, organs and martine l. COMPARISON: None FINDINGS: No pulmonary contusion. 7 mm nodule left lower lobe. Tiny right lung nodule likely benign. No mediastinal or hilar lymphadenopathy seen. No pleural effusion. No pericardial effusion. Liver, spleen, pancreas, adrenals kidneys and bladder do not demonstrate a traumatic injury. There is no evidence of diverticulitis Mild chronic deformity L1 vertebral body. IMPRESSION: No acute traumatic injury chest, abdomen/pelvis 7 mm nodule left lower lobe. Per Fleischner recommendation CT at 6-12 months, then consider CT at 18- 24 months
--- NOTE | 2024-04-27 17:35 | RAD REPORT ---
EXAMINATION: CT HEAD WITHOUT CONTRAST CT CERVICAL SPINE WITHOUT CONTRAST CLINICAL INDICATION: Head and neck injury status post fall. Head and neck pain TECHNIQUE: Axial CT images from the skull base to the vertex without intravenous contrast. Axial CT i mages through the cervical spine were obtained without intravenous contrast. Sagittal and coronal reformatted images were created from the data set. Coronal and sagittal reformatted images were creat ed from the data set. One or more of the following dose reduction techniques were used: Automated exposure control, adjustment of the mA and/or kV according to patient size, and/or iterative reconstr uction. Unless otherwise specified, incidental findings do not require dedicated imaging follow-up. [id number]. Comparison: MRI cervical spine 2014 FINDINGS: Posterior scalp hematoma. Increased density is present within the medial frontal lobes bilaterally along the medial aspect of t he right temporal lobe. Mild increased density is present along the right tentorium. No significant hypodensity within the brain The ventricles are normal caliber. No shift of midline structures. No fluid within the sinuses/mastoids No fracture or dislocation is seen involving the cervical spine. Mild anterior subluxation C2 on C3, C3 on C4 and C4 on C5.. Mild posterior subluxation C7 on T1 IMPRESSION: Increased density within the medial frontal lobes bilaterally probably small amount of intraparenchym al blood. Increased density along the medial right temporal lobe and right tentorium probably very small subdural bleeds. A cervical fracture is not seen. The exam was discussed with Dr. Corral in the emergency room
--- NOTE | 2024-04-27 17:42 | EDPHYS ---
Physician Documentation [facility] Name: Karlee Sapp Age: 78 yrs Sex: Female : 1945 Arrival Date: 04/27/2024 Time: 15:06 Bed 6 Private MD: ED Physician Adelso Corral HPI: 04/27 15:50 This 78 yrs old Female presents to ER via Unassigned with complaints of Head inderjit Injury Without LOC-Adult. 15:50 The patient or guardian reports pain, swelling, tenderness. The complaints affect the inderjit left occipital area and right occipital area. Context of injury: The problem was sustained at home. Onset: The symptoms/episode began/occurred just prior to arrival. Associated signs and symptoms: Loss of consciousness: This patient did not experience any loss of consciousness. Pertinent positives: injury, Pertinent negatives: nausea, vomiting. Severity of symptoms: At their worst the symptoms were moderate, in the emergency department the symptoms are unchanged. The patient has not experienced similar symptoms in the past. Historical: - Allergies: 15:50 Demerol; hb 15:50 Morphine; hb - PMHx: 15:50 Hypertension; BREAST CA; osteo arthritis; palpitations; hb - Immunization history:: Adult Immunizations up to date. - Infectious Disease History:: Denies. - Immunization history: Last tetanus immunization: - up to date. - Social history:: Smoking status: Smoking status: Patient denies any tobacco usage or history of. ROS: 15:51 Constitutional: Negative for fever, chills, and weight loss, Eyes: Negative for injury, inderjit pain, redness, and discharge, ENT: Negative for injury, pain, and discharge, Neck: Negative for injury, pain, and swelling, Cardiovascular: Negative for chest pain, palpitations, and edema, Respiratory: Negative for shortness of breath, cough, wheezing, and pleuritic chest pain, Abdomen/GI: Negative for abdominal pain, nausea, vomiting, diarrhea, and constipation, : Negative for injury, bleeding, discharge, and swelling, MS/Extremity: Negative for injury and deformity, Skin: Negative for injury, rash, and discoloration, Psych: Negative for depression, anxiety, suicide ideation, homicidal ideation, and hallucinations, Allergy/Immunology: Negative for hives, rash, and allergies, Endocrine: Negative for neck swelling, polydipsia, polyuria, polyphagia, and marked weight changes, Hematologic/Lymphatic: Negative for swollen nodes, abnormal bleeding, and unusual bruising, 15:51 Back: Positive for decreased range of motion, pain at rest, of the thoracic area, 15:51 Neuro: Positive for headache, of the right occipital area and left occipital area, Exam: 15:52 Constitutional: This is a well developed, well nourished patient who is awake, alert, inderjit and in no acute distress. Eyes: Pupils equal round and reactive to light, extra-ocular motions intact. Lids and lashes normal. Conjunctiva and sclera are non-icteric and not injected. Cornea within normal limits. Periorbital areas with no swelling, redness, or edema. ENT: Nares patent. No nasal discharge, no septal abnormalities noted. Tympanic membranes are normal and external auditory canals are clear. Oropharynx with no redness, swelling, or masses, exudates, or evidence of obstruction, uvula midline. Mucous membranes moist. Neck: Trachea midline, no thyromegaly or masses palpated, and no cervical lymphadenopathy. Supple, full range of motion without nuchal rigidity, or vertebral point tenderness. No Meningismus. Chest/axilla: Normal chest wall appearance and motion. Nontender with no deformity. No lesions are appreciated. Cardiovascular: Regular rate and rhythm with a normal S1 and S2. No gallops, murmurs, or rubs. Normal PMI, no JVD. No pulse deficits. Respiratory: Lungs have equal breath sounds bilaterally, clear to auscultation and percussion. No rales, rhonchi or wheezes noted. No increased work of breathing, no retractions or nasal flaring. Abdomen/GI: Soft, non-tender, with normal bowel sounds. No distension or tympany. No guarding or rebound. No evidence of tenderness throughout. Skin: Warm, dry with normal turgor. Normal color with no rashes, no lesions, and no evidence of cellulitis. MS/ Extremity: Pulses equal, no cyanosis. Neurovascular intact. Full, normal range of motion., bilateral aka Neuro: Awake and alert, GCS 15, oriented to person, place, time, and situation. Cranial nerves II-XII grossly intact. Motor strength 5/5 in all extremities. Sensory grossly intact. Cerebellar exam normal. Normal gait. Psych: Awake, alert, with orientation to person, place and time. Behavior, mood, and affect are within normal limits. 15:52 Head/face: Noted is contusion, hematoma, that is moderate, of the left occipital area and right occipital area, 19:16 ECG was reviewed by the Attending Physician. [facility] Vital Signs: 15:49 BP 142 / 70; Pulse 63; Resp 16; Temp 97.9; Pulse Ox 100% ; Weight 78.02 kg; Height 5 hb ft. 4 in. ; Pain 5/10; 19:13 BP 157 / 72; ll1 19:26 BP 171 / 66; Pulse 92; Resp 18 S; Pulse Ox 97% on R/A; Pain 6/10; br2 15:49 Body Mass Index 29.52 (78.02 kg, 162.56 cm) hb 15:49 Pain Scale: Adult hb 19:26 Pain Scale: Adult br2 [place] Coma Score: 15:50 Eye Response: spontaneous(4). Motor Response: obeys commands(6). Verbal Response: inderjit oriented(5). Total: 15. 15:52 Eye Response: spontaneous(4). Motor Response: obeys commands(6). Verbal Response: inderjit oriented(5). Total: 15. 18:10 Eye Response: spontaneous(4). Motor Response: obeys commands(6). Verbal Response: ll1 oriented(5). Total: 15. Trauma Score (Adult): 18:10 Eye Response: spontaneous(1); Verbal Response: oriented(1); Motor Response: obeys ll1 commands(2); Systolic BP: > 89 mm Hg(4); Respiratory Rate: 10 to 29 per min(4); Nayana Score: 15; Trauma Score: 12 MDM: 15:50 Medical Screening Exam initiated inderjit 15:52 Differential diagnosis: Contusion of Hematoma on Intracranial bleed- Concussion without inderjit LOC. cerebral contusion. Data reviewed: vital signs, nurses notes, lab test result(s), radiologic studies, CT scan. Consideration of Admission/Observation Escalation of care including admission/observation considered. I considered the following discharge prescriptions or medication management in the emergency department Medications were administered in the Emergency Department. See MAR. Test considered but Not performed: Labs: no labs. Care significantly affected by the following chronic conditions: Hypertension, Cancer, palpitations, breast ca. 04/27 17:33 Order name: CBC with Diff; Complete Time: 19:18 [facility] 04/27 17:33 Order name: Comprehensive Metabolic Panel; Complete Time: 18:25 [facility] 04/27 17:33 Order name: PT-INR; Complete Time: 19:18 [facility] 04/27 15:55 Order name: Chest Abd Pelvis Wo Con; Complete Time: 17:21 EDMS 04/27 15:56 Order name: Head C Spine Mpr Wo Con; Complete Time: 17:39 EDMS 04/27 18:25 Order name: EKG; Complete Time: 18:25 [facility] 04/27 15:50 Order name: Ice pack; Complete Time: 18:19 [facility] 04/27 18:25 Order name: EKG - Nurse/Tech; Complete Time: 19:10 [facility] EC:16 Rate is 55 beats/min. Rhythm is regular. QRS [place] is Normal. DE interval is prolonged inderjit at 272 msec. QRS interval is normal. QT interval is normal. No Q waves. T waves are Normal. No ST changes noted. Clinical impression: NSR w/ Non-specific ST/T Changes, 1st degree heart block, and No evidence of ischemia. Administered Medications: 18:08 Drug: Acetaminophen PO 1000 mg PO once Route: PO; ll1 18:35 Follow up: Response: No adverse reaction ll1 18:08 Drug: Ondansetron IVP 4 mg IVP once; over 2 minutes Route: IVP; Site: left antecubital; 1 18:08 Drug: Keppra IV 1000 mg IV at per protocol once Route: IV; Rate: per protocol; Site: [facility] left antecubital; 18:58 Follow up: Response: No adverse reaction; IV Status: Completed infusion; IV Intake: [id number] 19:25 Drug: Potassium PO Effervescent Tablet 25 mEq PO once; dissolve in 4 ounces of water or br2 juice Route: PO; 19:25 Drug: NS 0.9% with KCl IV 20 mEq/L 1000 ml IV at 125 ml/hr continuous Route: IV; Rate: br2 125 ml/hr; Site: right antecubital; 19:34 Follow up: Response: Medication Administered at Departure; IV Status: Infusion br2 continued upon transfer; IV Intake: 2ml 19:25 Drug: fentaNYL (PF) IVP 25 mcg IVP once Route: IVP; Site: right antecubital; br2 19:35 Follow up: Response: Medication Administered at Departure br2 19:25 Drug: Ondansetron IVP 4 mg IVP once; over 2 minutes Route: IVP; Site: right antecubital;br2 19:35 Follow up: Response: Medication Administered at Departure br2 19:26 Not Given (ems at bedside for transfer and med not available in err): kcentra1,000 unit br2 1000 units IV at per protocol once Disposition Summary: 04/27/24 17:42 Transfer Ordered Notes: Transfer Location: [facility] inderjit Reason: Higher level of care inderjit Condition: Stable(04/27/24 17:42) inderjit Problem: new(04/27/24 17:42) inderjit Symptoms: have improved(04/27/24 17:42) inderjit Accepting Physician: kasia montilla colin(04/27/24 19:35) br2 Diagnosis - History of falling inderjit - Unspecified injury of head, initial encounter(04/27/24 17:42) inderjit - Traumatic subdural hemorrhage inderjit - buttermaker continuous churn (current) use of anticoagulants - ELIQUIS(04/27/24 18:27) inderjit - Hypokalemia inderjit Forms: - Medication Reconciliation Form inderjit - SBAR form inderjit Signatures: Dispatcher [employer] EDMS Adelso Corral MD MD cha Baxter, Heather, RN RN Ann Daley RN RN ll1 Bianka Silva RN RN br2 Corrections: (The following items were deleted from the chart) 15:56 15:50 Head C Spine Cap Wo Con+CT.RAD.BRZ ordered. EDMS EDMS 17:33 17:33 CBC+H.LAB.BRZ ordered. EDMS EDMS 17:33 17:33 COMPREHENSIVE METABOLIC PANEL+C.LAB.BRZ ordered. EDMS EDMS 17:33 17:33 PROTIME (+INR)+COAG.LAB.BRZ ordered. EDMS EDMS 17:33 17:33 Home inderjit inderjit 17:33 17:33 new inderjit inderjit 17:33 17:33 have improved inderjit inderjit 17:33 17:33 Stable inderjit inderjit 17:33 17:33 Fall on same level, unspecified inderjit inderjit 17:33 17:33 Unspecified injury of head, initial encounter - occipital hematoma inderjit inderjit 17:33 17:33 buttermaker continuous churn (current) use of anticoagulants inderjit inderjit 17:33 17:33 Solitary pulmonary nodule - 7 mm left lower inderjit inderjit 18:27 17:42 to tin montilla inderjit inderjit 18:27 17:42 buttermaker continuous churn (current) use of anticoagulants inderjit inderjit 19:35 18:27 to tin montilla inderjit br2
--- NOTE | 2024-04-27 17:42 | ER ---
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 Negative LOC. Takes Eliquis. Coronavirus screen: At this time, the client does not indicate any symptoms associated with coronavirus-19. Ebola Screen: No symptoms or risks identified at this time. Initial Sepsis Screen: Does the patient meet any 2 criteria? No. Patient's initial sepsis screen is negative. Does the patient have a suspected source of infection? No. Patient's initial sepsis screen is negative. Risk Assessment: Do you want to hurt yourself or someone else? Patient reports no desire to harm self or others. Onset of symptoms was April 27, 2024. 15:49 Method Of Arrival: Wheelchair hb 15:49 Acuity: FRANCISCA 3 hb 18:37 Care prior to arrival: None. Mechanism of Injury: Fall. Trauma event details: Injury ll1 occurred in the [facility]. Trauma Activation: Not Applicable Physician: ED Physician; Name: ; Notified At: ; Arrived At: Physician: General Surgeon; Name: ; Notified At: ; Arrived At: Physician: Radiology; Name: ; Notified At: ; Arrived At: Physician: Respiratory; Name: ; Notified At: ; Arrived At: Physician: Lab; Name: ; Notified At: ; Arrived At: Historical: - Allergies: 15:50 Demerol; hb 15:50 Morphine; hb - PMHx: 15:50 Hypertension; BREAST CA; osteo arthritis; palpitations; hb - Immunization history:: Adult Immunizations up to date. - Infectious Disease History:: Denies. - Immunization history: Last tetanus immunization: - up to date. - Social history:: Smoking status: Smoking status: Patient denies any tobacco usage or history of. Screenin:10 [facility] ED Fall Risk Assessment (Adult) History of falling in the last 3 months, ll1 including since admission Yes- single mechanical fall (1 pt) Confusion or Disorientation No (0 pts) Intoxicated or Sedated No (0 pts) Impaired Gait Yes (1 pt) Mobility Assist Device Used Yes (1 pt) Altered Elimination Yes (1 pt) Score/Fall Risk Level 3 or more points = High Risk Oriented to surroundings, Maintained a safe environment, Hourly rounding (assess needs \T\ fall precautionary measures) done, Used ambulatory aids as needed (educated on \T\ assisted with). Abuse screen: Denies threats or abuse. Nutritional screening: No deficits noted. Tuberculosis screening: No symptoms or risk factors identified. Primary Survey: 18:10 NO uncontrolled hemorrhage observed. A: The client is awake and alert. The airway is ll1 patent. Breathing/Chest: Spontaneous respiratory effort, equal unlabored respirations, breath sounds clear bilaterally, regular pattern, symmetrical chest rise and fall. Circulation: No external hemorrhage present. Regular and strong central pulse, skin warm/dry/normal color. Disability Client is alert. Exposure/Environment: There is no evidence of uncontrolled external bleeding. 18:37 Reassessment Breathing: Spontaneous respiratory effort, equal unlabored respirations, ll1 breath sounds clear bilaterally, regular pattern with symmetrical chest rise and fall. Assessment: 18:09 General: Appears uncomfortable, Behavior is calm, cooperative, appropriate for age. ll1 Pain: Complains of pain in scalp Pain currently is 8 out of 10 on a pain scale. Quality of pain is described as aching, throbbing. Neuro: Reports dizziness, headache weakness decreased hearing. GI: Reports nausea. EENT: Reports decreased hearing. Vital Signs: 15:49 BP 142 / 70; Pulse 63; Resp 16; Temp 97.9; Pulse Ox 100% ; Weight 78.02 kg; Height 5 hb ft. 4 in. ; Pain 5/10; 19:13 BP 157 / 72; ll1 19:26 BP 171 / 66; Pulse 92; Resp 18 S; Pulse Ox 97% on R/A; Pain 6/10; br2 15:49 Body Mass Index 29.52 (78.02 kg, 162.56 cm) hb 15:49 Pain Scale: Adult hb 19:26 Pain Scale: Adult br2 [place] Coma Score: 15:50 Eye Response: spontaneous(4). Motor Response: obeys commands(6). Verbal Response: inderjit oriented(5). Total: 15. 15:52 Eye Response: spontaneous(4). Motor Response: obeys commands(6). Verbal Response: inderjit oriented(5). Total: 15. 18:10 Eye Response: spontaneous(4). Motor Response: obeys commands(6). Verbal Response: ll1 oriented(5). Total: 15. Trauma Score (Adult): 18:10 Eye Response: spontaneous(1); Verbal Response: oriented(1); Motor Response: obeys ll1 commands(2); Systolic BP: > 89 mm Hg(4); Respiratory Rate: 10 to 29 per min(4); [place] Score: 15; Trauma Score: 12 ED Course: 15:08 Patient arrived in ED. im 15:09 Jeromy Matta MD is Attending Physician. ec2 15:46 Attending Physician role handed off by Jeromy Matta MD ec2 15:46 Adelso Corral MD is Attending Physician. ec2 15:50 Triage completed. hb 15:51 Arm band placed on. hb 16:43 Chest Abd Pelvis Wo Con In Process Unspecified. EDMS 16:44 Head C Spine Mpr Wo Con In Process Unspecified. EDMS 17:44 Ann Cornelius, RN is Primary Nurse. ll1 17:44 Warm blanket given. Ice pack to injury. jl7 17:45 Provided Education on: ER procedures and process. ll1 18:11 Patient has correct armband on for positive identification. Bed in low position. Call ll1 light in reach. Client placed on continuous cardiac and pulse oximetry monitoring. NIBP monitoring applied. 18:35 No provider procedures requiring assistance completed. Patient transferred, IV remains ll1 in place. 18:39 Patient maintains SpO2 saturation greater than 95% on room air. ll1 18:41 Thermoregulation: warm blanket given to patient. al5 19:00 Report given to intramural director RN. ll1 19:10 EKG done, by ED staff, reviewed by Adelso Corral MD. sa1 19:14 Maintain EMS IV. Dressing intact. Good blood return noted. Site clean \T\ dry. Gauge \T\ ll 1 site: 18 L AC. Administered Medications: 18:08 Drug: Acetaminophen PO 1000 mg PO once Route: PO; ll1 18:35 Follow up: Response: No adverse reaction ll1 18:08 Drug: Ondansetron IVP 4 mg IVP once; over 2 minutes Route: IVP; Site: left antecubital; ll1 18:08 Drug: Keppra IV 1000 mg IV at per protocol once Route: IV; Rate: per protocol; Site: ll1 left antecubital; 18:58 Follow up: Response: No adverse reaction; IV Status: Completed infusion; IV Intake: [id number] 19:25 Drug: Potassium PO Effervescent Tablet 25 mEq PO once; dissolve in 4 ounces of water or br2 juice Route: PO; 19:25 Drug: NS 0.9% with KCl IV 20 mEq/L 1000 ml IV at 125 ml/hr continuous Route: IV; Rate: br2 125 ml/hr; Site: right antecubital; 19:34 Follow up: Response: Medication Administered at Departure; IV Status: Infusion br2 continued upon transfer; IV Intake: 2ml 19:25 Drug: fentaNYL (PF) IVP 25 mcg IVP once Route: IVP; Site: right antecubital; br2 19:35 Follow up: Response: Medication Administered at Departure br2 19:25 Drug: Ondansetron IVP 4 mg IVP once; over 2 minutes Route: IVP; Site: right antecubital;br2 19:35 Follow up: Response: Medication Administered at Departure br2 19:26 Not Given (ems at bedside for transfer and med not available in err): kcentra1,000 unit br2 1000 units IV at per protocol once Medication: 18:41 VIS not applicable for this client. al5 Intake: 18:38 PO: 0ml; Total: 0ml. ll1 18:58 IV: 50ml; Total: 50ml. ll1 19:34 IV: 2ml; Total: 52ml. br2 Output: 18:38 Urine: 0ml; Total: 0ml. ll1 Outcome: 17:33 Discharge ordered by . inderjit 17:42 ER care complete, transfer ordered by . inderjit 18:37 Transferred by ground EMS to [facility], Transfer form completed. Note: ll1 report called to Katty Lanier RN at [place] [facility] 18:37 Condition: stable 18:37 Instructed on the need for transfer, 18:39 Patient's length of stay was not longer than 2 hours. ll1 19:35 Patient left the ED. br2 Signatures: Dispatcher [employer] Adelso Braswell MD MD cha Baxter, Heather, RN RN Tanner Bass RN RN jl7 Ann Cornelius RN RN ll1 Karla Metz Edwin, MD MD ec2 Haley Jose RN RN al5 Sultan Avtar sa1 Bianka Silva RN RN br2
[2024-04-27] MEDS ORDERED: ACETAMINOPHEN 500 MG TAB ONE (18:00)
[2024-04-27] MEDS ORDERED: ONDANSETRON 4 MG/2 ML VIAL ONE ×2 (18:00→19:19)
[2024-04-27] MEDS ORDERED: NA CHLORIDE 0.9% 100 ML ONE (18:01)
[2024-04-27] MEDS ORDERED: LEVETIRACETAM 500 MG/5 ML VIAL IV ONE (18:01)
[2024-04-27 18:07] LABS: Absolute Lymphocytes (CBC) 1.4 K/uL (0.7-4.9); Absolute Monocytes 0.7 K/uL (0.1-1.3); Absolute Neutrophil 8.2 K/uL (1.8-8.0); Basophils % 0.4 % (0-1.3); Eosinophils % 0.5 % (0-4.4); Hematocrit 38.3 % (36.0-45.0); Hemoglobin 12.7 g/dL (12.0-15.0); Lymphocytes % 13.7 % (15.3-44.8); MCH 28.2 pg (27.0-35.0); MCHC 33.1 g/dL (32.0-36.0); MPV 8.7 fL (7.6-11.3); Neutrophils % 78.4 % (41.7-73.7); Nucleated Red Blood Cells % 0.1 % (0-0); Platelets 206 thou/uL (152-406); RBC Red Blood Cell Count 4.51 M/uL (3.86-4.86); Red Cell Distribution Width 13.5 % (12.1-15.2)
[2024-04-27 18:23] LABS: Albumin 3.6 g/dL (3.4-5.0); Albumin/Globulin Ratio 1.1 (1.1-1.8); Bilirubin Total 0.6 mg/dL (0.2-1.0); Globulin 3.2 g/dL (2.3-3.5); Protein, Total 6.8 g/dL (6.4-8.2)
[2024-04-27 18:29] LABS: PT Prothrombin Time 17.7 SECONDS (9.4-12.5); Protime INR 1.6
[2024-04-27] MEDS ORDERED: POTASSIUM 25 MEQ EFFERV TAB ONE (19:08)
[2024-04-27] MEDS ORDERED: NS KCL 20MEQ 1,000 ML IV ONE (19:08)
[2024-04-27] MEDS ORDERED: FENTANYL CITR 100 MCG/2 ML ONE (19:19)
[2024-04-27 19:59] VITALS: TEMP 97.9
[2024-04-27 20:01] VITALS: BP 171/66; O2SAT 97
--- NOTE | 2024-04-30 13:43 | EKG ---
Test Date: 2024-04-27 Test Time: 19:04:21 Retread Supervisor: MEASUREMENT RESULTS: Intervals: Rate: 55 NJ: 272 QRSD: 148 QT: 492 QTc: 470 [place]: P: 69 [place]: 272 QRS: -44 T: 63 INTERPRETIVE STATEMENTS: Sinus bradycardia with 1st degree AV block Left axis deviation Right bundle branch block Possible Lateral infarct, age undetermined Abnormal ECG Compared to ECG 06/15/2018 13:15:16 First degree AV block now present Left-axis deviation now present Right bundle-branch block now present Myocardial infarct finding now present Sinus rhythm no longer present Electronically Signed On 04-30-24 13:37:38 SPARMAKER by Milton Shen
== END 2024-04-27 19:35 | disposition short-term general hospital (02) ==
LOC: ER 15:06
DX: S06.5X0A Traumatic subdural hemorrhage without loss of consciousness, initial encounter (principal); W19.XXXA Unspecified fall, initial encounter; E87.6 Hypokalemia; I10 Essential (primary) hypertension; M19.90 Unspecified osteoarthritis, unspecified site; Z79.01 Long term (current) use of anticoagulants; Z88.5 Allergy status to narcotic agent
CPT/HCPCS: 93005; 85025; 36415; 85610; 80053; 70450; 71250; 72125; 74176; 99285; J1953; J3010; J2405 ×2; J3480